=== PATIENT | male | born 1955 | race Caucasian/White ===

== ENCOUNTER 2017-01-13 10:49 | Outpatient (CLI) | payer BC ==
--- NOTE | 2017-01-13 13:35 | XRAY Report ---
LEFT HIP AND PELVIS: 01/13/2017 CLINICAL INDICATION: Pain. FINDINGS: Frontal view of the hips and pelvis and frogleg lateral view of the left hip were obtained . Old, healed right pelvic fractures are noted, with screw fixation of the pubic symphysis and fusion of the sacroiliac joints bilaterally. Mild left hip osteoarthritis is present. No acute fracture or dislocation is seen. IMPRESSION: MILD LEFT HIP OSTEOARTHRITIS. POSTOPERATIVE CHANGES IN THE PELVIS AND OLD, HEALED RIGHT PELVIC FRACTURES. JOB #: [id number] EXT JOB #:[id number]
== END 2017-01-13 10:50 | disposition home or self-care (01) ==
LOC: DI.S 10:49
PROVIDERS: ATTEND Internal Medicine
DX: M25.552 Pain in left hip (principal); M16.12 Unilateral primary osteoarthritis, left hip

== ENCOUNTER 2017-03-17 07:03 | Outpatient (CLI) | payer BC ==
[2017-03-17 11:52] LABS: CHOL/HDL RATIO 4.2 (<5.0); CHOLESTEROL 212 mg/dL; HDL CHOLESTEROL 51 mg/dL; LDL/HDL RATIO 2.8 (<3.6); TRIGLYCERIDES 86 mg/dL; VLDL CHOLESTEROL 17 mg/dL
== END 2017-03-17 07:04 | disposition home or self-care (01) ==
LOC: LAB.F 07:03
PROVIDERS: ATTEND Internal Medicine
DX: Z11.59 Encounter for screening for other viral diseases (principal); Z13.6 Encounter for screening for cardiovascular disorders
CPT/HCPCS: 36415; 80061; 86803

== ENCOUNTER 2017-05-12 07:09 | Outpatient (CLI) | payer BC ==
[2017-05-12 11:19] LABS: CHOL/HDL RATIO 2.6 (<5.0); CHOLESTEROL 135 mg/dL; GLUCOSE,FASTING 95 mg/dL (70-100); HDL CHOLESTEROL 52 mg/dL; LDL/HDL RATIO 1.4 (<3.6); TRIGLYCERIDES 62 mg/dL; VLDL CHOLESTEROL 12 mg/dL
== END 2017-05-12 07:10 | disposition home or self-care (01) ==
LOC: LAB.F 07:09
PROVIDERS: ATTEND Internal Medicine
DX: R03.0 Elevated blood-pressure reading, without diagnosis of hypertension (principal); M25.552 Pain in left hip; E78.5 Hyperlipidemia, unspecified; M72.2 Plantar fascial fibromatosis; Z00.00 Encounter for general adult medical examination without abnormal findings
CPT/HCPCS: 36415; 80061; 82947

== ENCOUNTER 2018-10-10 07:51 | Outpatient (CLI) | payer BC ==
[2018-10-10 10:25] LABS: CHOL/HDL RATIO 3.5 (<5.0); CHOLESTEROL 173 mg/dL; HDL CHOLESTEROL 50 mg/dL; LDL CHOLESTEROL,CALCULATED 108 mg/dL; LDL/HDL RATIO 2.2 (<3.6); VLDL CHOLESTEROL 15 mg/dL
== END 2018-10-10 07:52 | disposition home or self-care (01) ==
LOC: LAB.F 07:51
PROVIDERS: ATTEND Internal Medicine
DX: E78.5 Hyperlipidemia, unspecified (principal)
CPT/HCPCS: 36415; 80061; 83721

== ENCOUNTER 2018-10-12 11:55 | Outpatient (CLI) | payer BC ==
--- NOTE | 2018-10-12 15:34 | Ultrasound Report ---
Reason: ON EXAMINATION - SCROTAL EDEMA Procedure Date: 10/12/2018 Accession Number: [id number] / [id number] Procedure: US - Testicle CPT Code: FULL RESULT: EXAM: SCROTAL ULTRASOUND EXAM DATE: 10/12/2018 12:38 PM. CLINICAL HISTORY: Right scrotal edema. COMPARISON: None. TECHNIQUE: Real-time scanning was performed with static images obtained. Color-flow images were utilized. FINDINGS: Right: Testis: 5.6 x 3.3 x 3.1 cm. Normal size and echotexture. No mass, calcification, or abnormal blood flow. Epididymis: 1.1 x 0.9 x 1.1 cm. Normal size and echotexture. No mass or abnormal blood flow. Hydrocele: A large but simple hydrocele is present measuring up to approximately 446 cc. No significant debris evident. Varicocele: None. Left: Testis: 4.6 x 3.0 x 3.4 cm. Normal size and echotexture. No mass, calcification, or abnormal blood flow. Epididymis: 1.7 x 1.0 x 1.1 cm. No mass or abnormal blood flow. Several tiny epidermal head cysts are present measuring up to 5 mm. Hydrocele: A moderate sized simple hydrocele present containing no visible debris. Varicocele: None. IMPRESSION: 1. Large right and moderate left simple hydroceles. 2. No testicular masses or acute inflammatory process identified. 3. Several small left epididymal head cysts measuring up to 5 mm. RADIA
== END 2018-10-12 11:56 | disposition home or self-care (01) ==
LOC: DI 11:55
PROVIDERS: ATTEND Internal Medicine
DX: N43.3 Hydrocele, unspecified (principal); N50.3 Cyst of epididymis
CPT/HCPCS: 76870

== ENCOUNTER 2023-04-21 07:19 | Outpatient (CLI) | payer OTHER ==
[2023-04-21 15:19] LABS: CHOL/HDL RATIO 3.7 (<5.0); CHOLESTEROL 176 mg/dL; HDL CHOLESTEROL 48 mg/dL; LDL CHOLESTEROL,CALCULATED 111 mg/dL; LDL/HDL RATIO 2.3 (<3.6); TRIGLYCERIDES 84 mg/dL (48-352); VLDL CHOLESTEROL 17 mg/dL
[2023-04-21 15:21] LABS: ESTIMATED AVERAGE GLUCOSE 97 mg/dL (70-100)
== END 2023-04-21 07:20 | disposition home or self-care (01) ==
LOC: LAB.S 07:19
PROVIDERS: ATTEND Internal Medicine
DX: E78.5 Hyperlipidemia, unspecified (principal); Z13.1 Encounter for screening for diabetes mellitus
CPT/HCPCS: 36415; 80061; 83036; 83721

== ENCOUNTER 2023-05-31 08:42 | Outpatient (CLI) | payer MEDICARE, OTHER ==
--- NOTE | 2023-05-31 12:50 | Ultrasound Report ---
PROCEDURE: Testicle INDICATIONS: LEFT HYDROCELE TECHNIQUE: Real-time scanning was performed of the scrotum and testicles, with image documentation. Color and p ulse Doppler interrogation was performed of both testicles. COMPARISON: 10/12/2018. FINDINGS: Right: Testicle is normal in size at 4.4 x 2.9 x 2.9 cm, and somewhat heterogeneous in echotexture. No testicular mass. Prominent rete testi. Epididymis is normal in overall size and morphology. Promin ent hydrocele, decreased from the previous study, measuring 3.5 x 5.4 x 1.7 cm. No varicoceles. Over lying scrotal skin is normal in thickness. Left: Testicle is normal in size at 4.2 x 2.7 x 4.2 cm, and somewhat heterogeneous in echotexture. No testicular mass. Prominent rete testi. Epididymis is normal in overall size and morphology. Promin ent, increased hydrocele, measuring 6.5 x 12.3 x 7.2 cm. Epididymal cyst measuring 0.5 x 0.7 x 0.5 cm . No varicoceles. Overlying scrotal skin is normal in thickness. Doppler: Color and pulse Doppler demonstrate normal and symmetric arterial flow in both testicles. IMPRESSION: 1. Normal-sized testicles with no evidence of testicular torsion or testicular mass. 2. Bilateral hydroceles, left greater than right. 3. No evidence of orchitis or epididymitis. Reviewed by: Gavino Mary MD on 05/31/2023 12:48 PM PST Approved by: Gavino Mary MD on 05/31/2023 12:48 PM PST Station ID: [id number]
== END 2023-05-31 08:43 | disposition home or self-care (01) ==
LOC: DI 08:42
PROVIDERS: ATTEND Urology
DX: N43.3 Hydrocele, unspecified (principal)